=== PATIENT | male | born 2000 | race Two or more races ===

== ENCOUNTER 2019-08-01 14:59 | Emergency (ER) | payer MEDICAID ==
[~2019-08-01] VITALS: Ht 167.6 cm; Wt 64.4 kg
[2019-08-01 15:31] VITALS: BP 139/86
[2019-08-01] MEDS ORDERED: FLUORESCEIN SODIUM OPHTH 1 EA STRIP OP ONE (16:00)
[2019-08-01] MEDS ORDERED: TETRACAINE HCL 0.5% OPHTALMIC 15 ML BOTTLE OP ONE (16:00)
[2019-08-01] MEDS ORDERED: FLUORESCEIN SODIUM OPHTH 1 EA STRIP ONE (16:02)
== END 2019-08-01 16:49 | disposition home or self-care (01) ==
LOC: ER 15:05
DX: S05.8X2A Other injuries of left eye and orbit, initial encounter (principal); H04.202 Unspecified epiphora, left side; X58.XXXA Exposure to other specified factors, initial encounter; Y93.89 Activity, other specified; Y92.89 Other specified places as the place of occurrence of the external cause; Y99.0 Civilian activity done for income or pay